=== PATIENT | female | born 1990 | race Caucasian/White ===

== ENCOUNTER 2016-09-25 09:55 | Inpatient (IN) ==
[2016-09-25 10:11] VITALS: BMI 25.0
[2016-09-25] MEDS ORDERED: CARBOPROST 250 MCG/ML INJECTION IM PRN (10:11)
[2016-09-25] MEDS ORDERED: CALCIUM CARBONATE Chewable 500mg TABLET PO PRN ×2 (10:11→18:25)
[2016-09-25] MEDS ORDERED: METHYLERGONOVINE 0.2 MG/ML INJECTION IM PRN (10:11)
[2016-09-25] MEDS ORDERED: MAG-AL + SIM ORAL LIQUID 30ml PO PRN ×2 (10:11→18:25)
[2016-09-25] MEDS ORDERED: ACETAMINOPHEN 500 MG TABLET PO PRN ×2 (10:11→18:25)
[2016-09-25] MEDS ORDERED: LIDOCAINE 1% (10mg/ml) 2mL INJ PF SDV ID PRN (10:11)
[2016-09-25] MEDS: LR 1,000 ML IV PRN ×2 (10:20→13:38)
[2016-09-25] MEDS ORDERED: D5LR 1,000 ML IV SCH (15:14)
[2016-09-25] MEDS ORDERED: ONDANSETRON 4 MG/2 ML INJECTION IVP PRN (17:40)
[2016-09-25] MEDS ORDERED: ROPIVACAINE 1% 10MG/ML INJ 200 MG, SUFentanil 50 MCG in NS 100 ML EPI PRN (17:40)
[2016-09-25] MEDS ORDERED: NALOXONE 0.4 MG/ML INJECTION IVP PRN (17:40)
[2016-09-25] MEDS ORDERED: DiphenhydrAMINE 50 MG/ML INJECTION IVP PRN (17:40)
--- NOTE | 2016-09-25 17:42 | Anesthesia Preoperative Report ---
Anesthesia Epidural/Spinal Rec - Date and Time Date: 09/25/16 Procedure: Labor Epidural Plan: Epidural - Vital Signs Vital Signs: Temperature 98.3 F 09/25/16 10:19 Pulse Rate 90 09/25/16 10:19 Respiratory Rate 16 09/25/16 10:19 Blood Pressure 123/77 09/25/16 10:19 Pulse Oximetry 98 09/25/16 10:19 Oxygen Delivery Method Room Air /Para: P:3 Heart Rate: 150 - Medictaions & Allergies Inpatient Medications: Current Medications Acetaminophen (Tylenol) 500 - 1,000 mg PO Q4H PRN PRN Reason: Pain Al Hydroxide/Mg Hydroxide (Maalox Plus) 30 ml PO Q3H PRN PRN Reason: Indigestion Calcium Carbonate (Tums) 500 - 1,000 mg PO Q2H PRN PRN Reason: Indigestion Last Admin: 09/25/16 15:58 Dose: 1,000 mg Carboprost Tromethamine (Hemabate) 250 mcg IM O PRN PRN Reason: .Downtime Lactated Ringer's (Lactated Ringers) 1,000 mls @ 1,000 mls/hr IV .Q1H PRN PRN Reason: as directed Last Admin: 09/25/16 13:38 Dose: 1,000 mls/hr Dextrose/Lactated Ringer's (Dextrose 5%-Lactated Ringers) 1,000 mls @ 125 mls/ hr IV .Q8H DEMI Last Admin: 09/25/16 15:17 Dose: 125 mls/hr Lidocaine HCl (Xylocaine-Mpf 1% Vial) 0.2 mg ID O PRN PRN Reason: IV Start Methylergonovine Maleate (Methergine) 0.2 mg IM O PRN Misoprostol (Cytotec) 800 mcg AK ONCE PRN Allergies/Adverse Reactions: Allergies Allergy/AdvReac Type Severity Reaction Status Date / Time No Known Allergies Allergy Unverified 09/25/16 10:10 - Home Medications Home Medications: Home Medications Medication Instructions Recorded Confirmed Type DiphenhydrAMINE [Benadryl] 1 cap PO Q6H PRN 09/25/16 09/25/16 History Vitamin Tab [Kenneth 1 tab PO DAILY 09/25/16 09/25/16 History ] raNITIdine HCl [Zantac 75] 75 mg PO DAILY 09/25/16 09/25/16 History - Medical History Respiratory: DENIES: Asthma, Bronchitis, Chronic Obstructive Pulmonary Disease (COPD), Dyspnea, Orthopnea, Pulmonary Embolism, Pneumonia, Upper Respiratory Infection, Pulmonary Edema, Sleep Apnea, Tuberculosis, Other Cardiovascular: DENIES: Abnormal EKG, Angina, Arrhythmia, Congestive Heart Failure, Coronary Artery Disease, Heart Murmur, Hypertension, Hypotension, High Cholesterol, Myocardial Infarction, Rheumatic Fever, Valvular Heart Disease, Other Gastrointestional: Reports: Gastroesophageal Reflux Disease (with ) Neuro/Musculoskeletal: Denies: HX.MS.OSAR, Back Problems, Cerebrovascular Accident, Depression, Headaches, Loss of Consciousness, Muscle Weakness, Neuromuscular Disorder, Paralysis, Paresthesia, Syncope, Seizures, Other Renal/Endocrine: DENIES: Diabetes Mellitus Type 1, Diabetes Mellitus Type 2, Renal Failure, Dialysis, Thyroid Disease, Weight Loss, Weight Gain, Other Other History: Reports: Now Anesthesia Reactions: nausea and vomiting - Social History Smoking Status: Former smoker (quit during . 0.25-0.5PPD) Time spent discussing smoking cessation with patient: 3 to 10 minutes Substance Use Type: does not use - Pertinent Findings Lab Data: CBC and BMP 09/25/16 10:22 EKG Rhythm: Normal Sinus Rhythm - Physical Exam Respiratory Exam: lungs clear, bilateral breath sounds equal Cardiovascular Exam: regular rate and rhythm, no murmur - Airway Assessment Mallampati Score: II TMD: 3 Fingerbreadths Neck Extension: good Overall Assessment: may be difficult intubation - ASA ASA Score: 2 - Discussion Discussion: Discussed risks/options/alternatives of anesthesia and questions answered. Patient consents. Nursing pain assessment noted. Anesthesia Discussion: spouse Attestation Statement: Prior to the delivery of any anesthetic medication, I examined the patient, developed the plan, obtained the patient's consent and discussed the risk and benefits of the procedure with the patient/guardian.
--- NOTE | 2016-09-25 18:24 | OB/GYN Procedure Note ---
Delivery date: 09/25/16 Procedure: Patient is a 26 year old, 4, para 3 who presented to labor and delivery at 37 weeks 5 days with contractions and active labor. Antepartum complications included history of kidney stones. Patient presented to the office this morning and was dilated to 5 centimeters. She was subsequently taken and admitted to the hospital for labor. heart rate was reactive and reassuring. Patient was marciano so augmentation of labor with Pitocin was deferred. She was rechecked 2 hours later and had remained 5 centimeter thus artificial rupture of membranes was performed to augment labor. There was a copious amount of clear fluid. At that time, she felt increasingly uncomfortable. An epidural was placed per patient's wishes for labor analgesia. No other complication noted. She progressed to complete dilation after within approximately 5 hours. Patient remained in the labor room, was prepped and draped in the usual sterile fashion. The delivered spontaneously over an intact perineum and without difficulty after 7 minutes of pushing with good maternal effort. The infant was placed on mother's abdomen after she had a good vigorous cry for [id number]. The cord was clamped and cut, and the placenta spontaneously delivered without difficulty after 17 minutes. A vaginal sweep was then performed. Hemostasis was noted. No complications. No atony. Infant and mother are doing well at this time. Apgars 8/9/9 Weight: 6 lbs 13 oz Name: Jessie Russo
[2016-09-25] MEDS ORDERED: OXYTOCIN DRIP 30 UNIT/500 ML ML IV PRN (18:25)
[2016-09-25] MEDS ORDERED: HYDROCORTISONE 2.5% CREAM 30gm RECTALLY PRN (18:25)
[2016-09-25] MEDS ORDERED: SALINE FLUSH 10ml SYRINGE IVF PRN (18:25)
[2016-09-25] MEDS ORDERED: DiphenhydrAMINE 25 MG CAPSULE PO PRN (18:25)
[2016-09-25] MEDS: HYDROCODONE/APAP 5mg/325mg TABLET PO PRN (19:54)
[2016-09-25] MEDS: IBUPROFEN 800 MG TABLET PO PRN (19:54)
[2016-09-26] MEDS: RANITIDINE 150 MG TABLET PO SCH ×2 (01:55→14:50)
[2016-09-26] MEDS: HYDROCODONE/APAP 5mg/325mg TABLET PO PRN ×3 (05:35→15:49)
[2016-09-26] MEDS: IBUPROFEN 800 MG TABLET PO PRN ×2 (05:35→15:48)
[2016-09-26] MEDS ORDERED: PRENATAL VITAMIN TABLET PO SCH (09:00)
[2016-09-26] MEDS ORDERED: DOCUSATE CALCIUM 240 MG CAPSULE PO SCH (09:00)
--- NOTE | 2016-09-26 10:14 | Anesthesia Postoperative Note ---
- Date and Time Date: 09/26/16 Time: 10:00 - Status Patient Participated in Evaluation: Patient Participated in Person Vital Signs: Temperature 97.4 F 09/26/16 06:39 Pulse Rate 70 09/26/16 06:39 Respiratory Rate 16 09/26/16 06:39 Blood Pressure 139/77 09/26/16 06:39 Pulse Oximetry 98 09/26/16 06:39 Oxygen Delivery Method Room Air Respiratory Function: Airway Patent, Regular Respirations Cardiovascular Function: Regular Pulse Pain Intensity: 8 (back soreness from epidural placement) Hydration: Taking PO Fluids Complications During Recover: None Apparent Post Anesthesia Care Notes: complain of severe back pain at epidural site. Advised to take pain pill and apply ice and heat to area. Explained to patient notify anesthesia and OB if persist more than two weeks. - Follow-Up Instructions Instructions: Per Surgeon
--- NOTE | 2016-09-26 11:46 | OB/GYN Progress Note ---
OB-PP Progress Note - General PPD1 Maternal Group B Strep: Negative Maternal Rubella Status: Immune - Subjective Date: 09/26/16 Lochia: Minimal Pain: contolled Voiding: voiding Nausea or Vomiting Present: No - Objective Vital Signs: Last Vital Signs Temp 97.4 F 09/26/16 06:39 Pulse 70 09/26/16 06:39 Resp 16 09/26/16 06:39 BP 139/77 09/26/16 06:39 Pulse Ox 98 09/26/16 06:39 General: alert and oriented Abdomen: fundus firm, non-tender Edema: none Laboratory: Laboratory Results - last 24 hr 09/26/16 06:11 WBC 12.5 H D RBC 3.52 L Hgb 11.3 L Hct 33.8 L MCV 96.0 MCH 32.1 MCHC 33.4 RDW Std Deviation 41.0 Plt Count 199 MPV 8.6 L - Assessment Assessment: SP, - Plan Plan: routine care, discharge home, continue PNV
--- NOTE | 2016-09-26 11:50 | Discharge Instructions ---
Discharge Plan - Med Rec/Dispo Prescriptions: New Hydrocodone/APAP 5/325 [[place] 5/325] 1 - 2 tab PO Q4H PRN #20 tablet PRN Reason: Pain Ibuprofen [Motrin] 800 mg PO Q8H PRN #60 tablet PRN Reason: Pain Continue Vitamin Tab [Kenneth ] 1 tab PO DAILY raNITIdine HCl [Zantac 75] 75 mg PO DAILY Discontinued DiphenhydrAMINE [Benadryl] 1 cap PO Q6H PRN PRN Reason: Discomfort - Disposition 01 Discharged Home, Self-Care
[2016-09-26 20:11] VITALS: BP 120/71; PULSE 81; RESP 18; TEMP 98.3; O2SAT 100
== END 2016-09-26 19:21 | disposition home or self-care (01) | DRG 775 ==
LOC: MC 09:55
PROVIDERS: ADMIT Obstetrics & Gynecology; ATTEND Obstetrics & Gynecology